=== PATIENT | female | born 2000 | race Caucasian/White ===

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

== ENCOUNTER → 2021-02-17 | Outpatient (CLI) | payer OTHER ==
[2021-02-17 17:27] LABS: BASO # 0.1 10^3/uL (0.0-0.2); BASO % 0.6 % (0.0-1.0); EOS # 0.1 10^3/uL (0.0-0.5); HEMATOCRIT 39.9 % (36.0-47.0); HEMOGLOBIN 13.4 g/dl (12.0-15.5); LYMPH % 27.8 % (24.0-44.0); MEAN CORPUSCULAR HEMOGLOBIN 30.5 pg (27.0-33.0); MEAN CORPUSCULAR HGB CONC 33.6 g/dl (32.0-36.5); MEAN CORPUSCULAR VOLUME 90.7 fl (80.0-96.0); MONO # 0.7 10^3/uL (0.0-0.8); MONO % 6.7 % (2.0-8.0); NEUTROPHILS # 6.8 10^3/uL (1.5-8.5); NEUTROPHILS % 63.6 % (36.0-66.0); PLATELET COUNT, AUTOMATED 303 10^3/uL (150-450); WHITE BLOOD COUNT 10.6 10^3/uL (4.0-10.0)
[2021-02-17 17:49] LABS: PERCENT SATURATION 24.7 % (13.2-45.0)
== END ==
LOC: M LAB 16:10
PROVIDERS: ATTEND Family Medicine
DX: R79.0 Abnormal level of blood mineral (principal); N94.6 Dysmenorrhea, unspecified

== ENCOUNTER → 2021-08-24 | Outpatient (CLI) | payer OTHER ==
[2021-08-24 16:21] LABS: BASO % 0.7 % (0.0-1.0); EOS % 0.2 % (0.0-3.0); HEMATOCRIT 43.2 % (36.0-47.0); HEMOGLOBIN 14.5 g/dl (12.0-15.5); LYMPH # 2.2 10^3/uL (1.5-5.0); LYMPH % 37.1 % (24.0-44.0); MEAN CORPUSCULAR HEMOGLOBIN 29.8 pg (27.0-33.0); MEAN CORPUSCULAR HGB CONC 33.6 g/dl (32.0-36.5); MEAN CORPUSCULAR VOLUME 88.7 fl (80.0-96.0); MONO # 0.4 10^3/uL (0.0-0.8); MONO % 6.8 % (2.0-8.0); NEUTROPHILS # 3.3 10^3/uL (1.5-8.5); PLATELET COUNT, AUTOMATED 289 10^3/uL (150-450); RED BLOOD COUNT 4.87 10^6/uL (4.00-5.40)
[2021-08-24 16:59] LABS: MAGNESIUM LEVEL 2.1 MG/DL (1.4-2.0); THYROID STIMULATING HORMONE 4.33 uIU/ML (0.463-3.98)
== END ==
LOC: M LAB 14:32
PROVIDERS: ATTEND Family Medicine
DX: E06.3 Autoimmune thyroiditis (principal); N94.6 Dysmenorrhea, unspecified; R79.0 Abnormal level of blood mineral

== ENCOUNTER 2021-09-06 15:48 | Emergency (ER) | payer OTHER ==
[~2021-09-06] VITALS: Ht 154.9 cm; Wt 41.2 kg
[2021-09-06] MEDS ORDERED: VYVA30CA4 (15:56)
--- OUTSIDE RECORDS SUMMARY | 2021-09-06 16:39 | CCD | Continuity of Care Document ---
Author Author Melody ARELLANO P.A.-C. Organization Unknown Address [address] [place] [id number] Phone [phone] Care Team Providers Care Thermodynamics Engineer Name Role Phone Ludwig Collado M.D. AUTM [phone] Problems Active Problems Provider Date Dizziness Jeni Jones M.D. Onset: 03/13/2016 Social History Type Date Description Comments Sex Unknown Tobacco Use Start: Unknown Patient has never smoked Allergies and adverse reactions Description No Known Drug Allergies Medications Active Medications SIG Qnty Indications Ordering Provide r Date Magnesium Oxide 400(241.3Mg) mg Ta blets 1 by mouth twice a day 60tabs Jeni Jones M.D. 03/13/20 16 Riboflavin 100mg Capsules 1 by mouth twice a day 60caps Jeni Jones M.D. 03/13/2016 Immunizations Description No Information Available Vital Signs Date Vital Result Comment 05/24/2021 6:22am BP Systolic 120 mmHg BP Diastolic 70 mmHg Heart Rate 68 /min Respiratory Rate 16 /min 02/17/2021 8:09am BP Systolic 100 mmHg BP Diastolic 70 mmHg Heart Rate 76 /min Respiratory Rate 16 /min Results Description No Information Available Procedures Date Code Description Status 08/26/2021 07552 Office/Outpatient Established Mo d MDM 30-39 Min Completed 05/24/2021 96423 Office/Outpatient Established Mo d MDM 30-39 Min Completed Medical Devices Description No Information Available Encounters Type Date Location Provider Dx Diagnosis Office Visit 08/26/2021 11:30a Main office - [place] Mami ann P.A.-C. 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 08/26/2021 G43.009 Migraine without aura, not intra ctable, without status migra Mami Arellano P.A.-C. 08/26/2021 R42 Dizziness and giddiness Mami Arellano, P.A.-C. 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 08/26/2021 F32.89 Other specified depressive episo artur Mami Arellano, P.A.-C. 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 05/24/2021 G43.009 Migraine without aura, not intra ctable, without status migra Mami Arellano, P.A.-C. 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 05/24/2021 G47.12 Idiopathic hypersomnia without l sekou sleep time Mami Arellano P.A.-C. 05/24/2021 R42 Dizziness and giddiness Mami Arellano P.A.-C. 05/24/2021 F32.89 Other specified depressive episo artur Mami Arellano P.A.-C. 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 Plan of Treatment Future Appointment(s):* 11/28/2021 2:45 pm - Mami Arellano P.A.-C. 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 DIZZINESS AND POTS Created [id number] [place] [address] [phone] Hugh Peraza, PH.D. LEARNING DIFFICULTIES WITH ADHD/OCD AND ANXI ETY Created Neuropsychologist [id number] [facility], [address] [place] [address] [phone]
--- OUTSIDE RECORDS SUMMARY | 2021-09-06 16:39 | CCD | Continuity of Care Document ---
Author Author [facility] Organization [facility] Address Unknown Phone Unavailable Care Team Providers Care Promotion Specialist Name Role Phone Jamie FRONT END WEB DEVELOPER, Sue Casey Unavailable Unavailable Allergies, Adverse Reactions, Alerts Substance Reaction Status Criticality POTASSIUM CLAVULANATE Active No Informa tion AMOXICILLIN TRIHYDRATE Active No Inform ation Medications Medication Instructions Dosage Effective Dates (start - stop) Sta tus Comments Aubra 0.1 mg-20 mcg tablet 1 po daily - Active Apri 0.15 mg-0.03 mg tablet take 1 tablet by oral route every d ay 1.00 tablet - Active Probiotic 10 billion cell capsule - Ac tive Vitamin C 100 mg tablet - Active multivitamin tablet - Active IRON (unknown strength) Not Available - Active 65 mcg MAGNESIUM (unknown strength) Not Available - Acti ve 200 mg Hair,Skin,Nails with Biotin 7.5 mg-7.5 unit-1,250 mcg chewable tabl et - Active Zyrtec 10 mg tablet take 1 tablet by oral route every day 10 MG - Active ibuprofen 200 mg tablet take 1 tablet by oral route every 6 hours as needed with food 200 MG - Active Problems Condition Effective Dates (start - stop) Clinical Status C omments Encounter for test, result negative Encounter for oth general cnsl and advice on contraception Encounter for surveillance of contraceptive pills 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 Other CVR Blood Pressure CVR Med.Svc. Height/Weight CVR Usability Strategist.Svc. Contraceptive CVR Usability Strategist.Svc. Other CVR Usability Strategist.Svc. STI / H Results Test Name Date and Time Measure Units Reference Range Abnormal Flag St atus Comments Panel Description: High Sensitivity Urine Test Fi nal High Sensitivity Urine Test 14:57:37 N egativeLot: [id number]: 12/26/2022 Final Advance Directives Directive Yes / No Effective Date File Name No Information Encounters Encounter Description Practice Location Reason(s) For Visit Diagnose s Date Provider Providers Copied on Encounter PREV VISIT, EST, AGE 18-39 [facility] [address] [place] [address], [id number], tel:[phone] [facility] [place] Prevent ative Visit (chief complaint) Encounter for test, result neg ativeEncounter for oth general cnsl and advice on contraceptionEncounter for surveillance of contraceptive pillsEncntr for food processing chemist exam (general) (routine) w/o abn findingsHuman immunodeficiency virus [HIV] counselingOther sex counseling Jamie Casey. [address] [place] [address], [id number], [place]. tel:[phone] Referring Provider: Sue yAala, [address] [place] [address], [id number]. tel:[phone] [facility], [address] [place] [address], [id number], [place] tel:[phone] [facility] [place] Encounter for pregn eliel test, result negativeHuman immunodeficiency virus [HIV] counselingEncounter for oth general cnsl and advice on contraceptionEncounter for initial prescription of contraceptive pillsOther sex counseling Cordelia garcia. [address] [place] [address], [id number], . tel:[phone] Referring Provider: Mami Storey, [address], [place], [id number]. tel:[phone] Family History Family Member Diagnosis Age At Onset Paternal grandfather Cancer, prostate Maternal grandmother Cancer, breast (Cause Of ) Family history of 'pulmonary issues' on fathers side Mother Cancer, ovarian Family history of 'heart problems' on fa thers side 1st degree relative No hx of cancer of breast, colon, endome trium or ovary 1st degree relative No hx of venous thromboembolism 1st degree relative No hx of coronary heart disease (female <65, male <55) Immunizations Vaccine Date Status Comments No Information Payers Payer name Insurance type Covered democrat ID Authorization(s ) [facility] Spouse And Dependents [id number] FPBP PRESUMPTIVE ELIGIBILITY Social History Type Description Quantity Date Captured Comments Alcohol Use Details Unknown Caffeine Use Details Unknown Tobacco Use Status Current non-smoker Smoking Status Never smoker Non-Smoking Tobacco Use Details : No Details Available : No Details Available Sex Female Vital Signs Date / Time: Height Weight BMI Pulse Rate Blood Pressure Temperatu re Respiratory Rate Body Surface Area Head Circumference BMI percentile Pulse Ox In haled Ox 2:43 PM 61.00 in 96.00 lbs 18.14 kg/meter(2) 120/78 mm [Hg] 7 Chief Complaint And Reason For Visit Most recent encounter only, dated '07/18/2021 14:30'. Preventative Visit (chief complaint) Reason For Referral Reason For Referral No Information Plan Of Treatment Date Type Action Status Appointment Melody Dent *SOHAIL* - Check BOOKED History Of Present Illness Encounter Date Complaint History Of Present I llness No Information Functional Status Date Functional Assessment No Information Medications Administered Medication Instructions Dosage Effective Dates (start - stop) Sta tus Comments No Information Instructions Date Instruction Additional Informati on No Information Assessments Type Assessment Date assessment Encounter for test, result neg ative assessment Encounter for oth general cnsl and advic e on contraception assessment Encounter for surveillance of contracept luna pills assessment 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 Anterior palpation - Normal. No abdominal tenderness. No hepatic enlargement. No splenic enlargement. No palpable mass. Cardiovascular Normal Heart rate - Regular rate. Rhythm - Regular. Heart sounds - Normal S1, Normal S2. Murmurs - None. Extremities - No edema. Extremity Normal No Cyanosis. No Elmer a. Neck Exam Normal Inspection - Normal. Palpation - Normal. Thyroid gland - Normal. Cervical lymph nodes - Normal. Neurological Normal Level of consciousne ss - Normal. Orientation - Normal. Respiratory Normal Inspection - Normal. Auscultation - Normal. Effort - Normal. Skin Normal Inspection - Normal. Palpation/texture - Normal. Breast Comments Due to age and guide lines Breast * Breast exam deferred . BSA was discussed.
--- OUTSIDE RECORDS SUMMARY | 2021-09-06 16:39 | CCD ---
Author Author [facility] Organization [facility] Address Unknown Phone Unavailable Care Team Providers Care Account Information Clerk Name Role Phone Ludwig Collado Unavailable PROBLEMS Type Condition ICD9-CM Code [id number] Code Onset Dates Condition S tatus W/U Status Risk SNOMED Code Notes Problem Excessive or frequent menstruation N92.0 Activ e confirmed 651223088 Problem Dysmenorrhea N94.6 Active confirmed 0694096 00 Problem Hypersomnia G47.10 Active confirmed 11354446 Problem Anxiety F41.9 Active confirmed 07675935 Problem Sinusitis, unspecified chronicity, unspecified location J32.9 Active confirmed 85947293 Problem Upper respiratory tract infection, unspecified type J06.9 Active confirmed 97530414 Problem Seasonal allergies J30.2 Active confirmed 4 91036910 Problem Attention deficit hyperactivity disorder (ADHD), unspecified ADHD type F90.9 Active confirmed 047830968 ALLERGIES Allergen (clinical drug ingredient) Drug/Non Drug Allergy do cumented on EMR Reaction Allergy Type Onset Date Status amoxicillin Amoxicillin(NDC Code:[address]-45) Nausea/Diarrhea Drug Allergy Active amoxicillin / clavulanate Augmentin(NDC Code:[address]-03) Naus ea/Vomiting Drug Allergy Active ENCOUNTERS from 2001 to 2021-06-14 Encounter Location Date Provider Diagnosis [facility] [address] [facility] [phone] [place] [address] May, Ludwig Collado Attention deficit hyperactiv ity disorder (ADHD), unspecified ADHD type F90.9 IMMUNIZATIONS Vaccine Route Administration Date Status COVID-19 dose #2 given elsewhere Unspecified IM Intramuscular Ma y 2020 Administered COVID-19 dose #1 given elsewhere Unspecified IM Intramuscular Ap ril 2020 Administered Influenza 6mo & up Fluzone Unknown Sep 27, 2017 Other s Influenza 6mo & up Fluzone Unknown March 15, 2017 Other s Influenza 6mo & up Fluzone Unknown Oct 12, 2015 Refus ed Influenza 6mo & up Fluzone Unknown Nov 26, 2014 Refus ed SOCIAL HISTORY Tobacco Use: Social History Observation Description Date Details (start date - stop date) Never Smoker Sex Assigned At : Social History Observation Description Sex Assigned At Unknown Education: Question Answer Notes Level of Education: starting college Language: Question Answer Notes Languages spoken: Croatian Catholic: Question Answer Notes Catholic 24 Hinduism Sexual Hx: Question Answer Notes Had sex in the last 12 months (vaginal, oral, or anal)? No LMP: 04/12/2020 Have you ever had an STD? No Alcohol Screening: Question Answer Notes Did you have a drink containing alcohol in the past year? No Points 0 Interpretation Negative Tobacco Use: Question Answer Notes Are you a: never smoker REASON FOR REFERRAL No Information VITAL SIGNS No information MEDICATIONS Medication SIG (Take, Route, Frequency, Duration) Notes Start Da te End Date Status Magnesium 200 MG 1 capsule Orally Once a day Active Hair Skin Nails - as directed Orally Active Zithromax Z-Lewis 250 MG 2 tablets on the first day, then 1 tablet daily for 4 days Orally Once a day for 5 day(s) Nov, Not-Taking Vitamin C 500 MG as directed Orally Active Iron 325 (65 Fe) MG 1 tablet Orally Once a day for 90 days Active Cetirizine HCl 10 MG 1 tablet Orally Once a day Active Vyvanse 30 MG 1 capsule in the morning Orally Once a day for 3 0 days May, Active Midol Active Ibuprofen 200 MG 1 tablet with food or milk as needed Ora lly Three times a day 300mg Active Probiotic - as directed Orally Activ e Multi Vitamin - 1 tablet Orally Once a day for 30 day(s) Active PROCEDURES No Information RESULTS No Results REASON FOR VISIT New Refill Request MEDICAL (GENERAL) HISTORY Type Description Date Medical History ADHD Medical History OCD Medical History anxiety Medical History bakers cyst knee Medical History hypersomnia Medical History HX concussion Medical History POTS Medical History Hx migraines, cluster headac hes, Mami Trickey, [facility] [facility] Medical History Seasonal allergies Medical History Myopia, astigmatism Medical History Florentin's thyroidits Medical History Covid vaccine, moderna Surgical History No know Surgical history Goals Section No Information Health Concerns No Information MEDICAL EQUIPMENT No Information MENTAL STATUS No Information FUNCTIONAL STATUS No Information ASSESSMENTS Encounter Date Diagnosis Assessment Notes Treatment Notes Treatm ent Clinical Notes May, Attention deficit hyperactiv ity disorder (ADHD), unspecified ADHD type (ICD-10 - F90.9) PLAN OF TREATMENT Medication Medication Name Sig Start Date Stop Date Iron 325 (65 Fe) MG 1 tablet Orally Once a day for 90 days Midol Vyvanse 30 MG 1 capsule in the morning Orally Once a d ay for 30 days May, Next Appt Details Provider Name:Ludwig Gonzalez Collado, 2021-08-17 03:45:00 PM, [address] [facility], , [place], [phone], Insurance Providers Payer Name Payer Address Payer Phone Insured Name Patient Relati onship to Insured Coverage Start Date Coverage End Date [facility] [address] [address] [facility] [id number] [place] self
[2021-09-06 20:51] LABS: RSV AMPLIFICATION NEGATIVE (NEGATIVE)
--- OUTSIDE RECORDS SUMMARY | 2021-09-06 21:54 | CCD ---
Author Author [facility] Organization [facility] Address Unknown Phone Unavailable Care Team Providers Care Under Ground Miner Name Role Phone Collado, Ludwig Unavailable PROBLEMS Type Condition ICD9-CM Code ZDQ89-DE Code Onset Dates Condition S tatus W/U Status Risk SNOMED Code Notes Problem Dysmenorrhea N94.6 Active confirmed 3678180 00 Problem Sinusitis, unspecified chronicity, unspecified location J32.9 Active confirmed 18175580 Problem Upper respiratory tract infection, unspecified type J06.9 Active confirmed 71910418 Problem POTS (postural orthostatic tachycardia syndrome) I 49.8 Active confirmed 955392113 Problem Excessive or frequent menstruation N92.0 Activ e confirmed 458200574 Problem 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 Active confirmed 93998187 Problem Attention deficit hyperactivity disorder (ADHD), unspecified ADHD type F90.9 Active confirmed 015126180 Problem Seasonal allergies J30.2 Active confirmed 4 56869128 Problem Anxiety F41.9 Active confirmed 08676509 Problem Hypersomnia G47.10 Active confirmed 84275774 ALLERGIES Allergen (clinical drug ingredient) Drug/Non Drug Allergy do cumented on EMR Reaction Allergy Type Onset Date Status amoxicillin Amoxicillin(ND Code:[address]-36) Nausea/Diarrhea Drug Allergy Active amoxicillin / clavulanate Augmentin(ND Code:[address]-78) Naus ea/Vomiting Drug Allergy Active ENCOUNTERS from 2001 to 2021-08-25 Encounter Location Date Provider Diagnosis [facility] [address] [facility] [phone] [place] [address] Jul, Ludwig Collado Dysmenorrhea N94.6 ; Attenti on deficit hyperactivity disorder (ADHD), unspecified ADHD type F90.9 ; Hypersomnia G47.10 ; Iron deficiency E61.1 ; 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 ; COVID-19 vaccine series c ompleted Z92.29 ; Low magnesium level R79.0 ; Influenza vaccine refused Z28.21 and POTS (postural orthostatic tachycardia syndrome) I49.8 IMMUNIZATIONS Vaccine Route Administration Date Status COVID-19 [...] college Language: Question Answer Notes Languages spoken: [place] Rastafarian: Question Answer Notes Rastafarian 24 Yarsani Sexual Hx: Question Answer Notes Had sex [...] REASON FOR REFERRAL No Information VITAL SIGNS Weight 92.2 lbs Jul, Weight-kg 41.82 kg Jul, Height 61 in Jul, BMI 17.42 kg/m2 Jul, Heart Rate 104 /min Jul, Respiratory Rate 16 /min Jul, Temperature 98.8 degrees Fahrenheit Jul, Oximetry 96 Jul, Blood pressure systolic 120 mm Hg Jul, Blood pressure diastolic 84 mm Hg Jul, MEDICATIONS Medication SIG (Take, Route, Frequency, Duration) Notes Start Da te End Date Status Iron 325 (65 Fe) MG 1 tablet Orally Once a day for 90 days Not-Taking Multi Vitamin - 1 tablet Orally Once a day for 30 day(s) Active Ibuprofen 200 MG 1 tablet with food or milk as needed Ora lly Three times a day PRN Active Hair Skin Nails - as directed Orally Active Cetirizine HCl 10 MG 1 tablet Orally Once a day Active Probiotic - as directed Orally Activ e Vitamin C 500 MG as directed Orally Active Zithromax Z-Lewis 250 MG 2 tablets on the first day, then 1 tablet daily for 4 days Orally Once a day for 5 day(s) Nov, Not-Taking Vyvanse 30 MG 1 capsule in the morning Orally Once a day for 3 0 days Jul, Active Magnesium 200 MG 1 capsule Orally Once a day Active Midol Active PROCEDURES No Information RESULTS Component Value Reference Range CBC with Differential Reviewed date:08/24/2021 17:37:40 Interpretation:Normal Performing Lab:[facility] [address] [place] [address] , ,[place] [address] WHITE BLOOD COUNT 6.0 4.0-10.0 RED BLOOD COUNT 4.87 4.00-5.40 HEMOGLOBIN 14.5 12.0-15.5 HEMATOCRIT 43.2 36.0-47.0 MEAN CORPUSCULAR VOLUME 88.7 80.0-96.0 MEAN CORPUSCULAR HEMOGLOBIN 29.8 27.0-33.0 MEAN CORPUSCULAR HGB CONC 33.6 32.0-36.5 RED CELL DISTRIBUTION WIDTH 11.7 11.5-14.5 PLATELET COUNT, AUTOMATED 289 150-450 NEUTROPHILS % 55.0 36.0-66.0 LYMPH % 37.1 24.0-44.0 MONO % 6.8 2.0-8.0 EOS % 0.2 0.0-3.0 BASO % 0.7 0.0-1.0 NEUTROPHILS # 3.3 1.5-8.5 LYMPH # 2.2 1.5-5.0 MONO # 0.4 0.0-0.8 EOS # 0.0 0.0-0.5 BASO # 0.0 0.0-0.2 IRON (FE) Reviewed date:08/24/2021 17:37:40 Interpretation:Normal Performing Lab:[facility] [address] [facility] [address] , ,[place] [address] IRON (FE) [phone] MAGNESIUM LEVEL Reviewed date:08/24/2021 17:37:40 Interpretation:Abnormal Performing Lab:[facility], [facility] [address] [facility] [address] , ,[place] [address] MAGNESIUM LEVEL 2.1 1.4-2.0 TSH Reviewed date:08/24/2021 17:37:40 Interpretation:Normal Performing Lab:[facility], [facility] [address] [facility] [address] , ,[place] [address] THYROID STIMULATING HORMONE 4.330 0.463-3.98 REASON FOR VISIT 6 mth MEDICAL (GENERAL) HISTORY Type Description Date Medical [...] Notes Treatment Notes Treatm ent Clinical Notes Jul, Dysmenorrhea (ICD-10 - N94.6) [facility]. On control at this time. Does not know name of medication. Had side effects from elevated dose, on low dose. Continue for now. Stopped using iron supplement. Order repeat to sceen. If low will recommend to restart. Jul, Attention deficit hyperactiv ity disorder (ADHD), unspecified ADHD type (ICD-10 - F90.9) Continue with vyvanse. Continues to get benefit. Was on adderall in the past. Noted tics worsened while on medication. Jul, Hypersomnia (ICD-10 - G47.10) Has been dealing with. Tolerating at this time. Issues with taking amphetamine in the past. Jul, Iron deficiency (ICD-10 - E61.1) Order repeat Iron levels. If low restart supplement. Jul, Florentin's thyroiditis (ICD-10 - E06.3) Order TSH to monitor thyroid function. Jul, COVID-19 vaccine series completed (ICD-10 - Z92. 29) Had moderna vaccine. Discussed if make recommendation on booster to get as needed. Questions call office. Jul, Low magnesium level (ICD-10 - R79.0) Repeat magnesium level to monitor. Jul, Influenza vaccine refused (ICD-10 - Z28.21) Recommended. Declined. Notes having side effects. Jul, POTS (postural orthostatic tachycardia s yndrome) (ICD-10 - I49.8) Follow up with neurology. Referreed to [facility] from neurology. Jul, Other Started series. Moderna. Has second scheduled. Looking into counseling with [facility]. Noted medical social worker here at clinic. Call if not improving. PLAN OF TREATMENT Treatment Notes Assessment Notes Clinical Notes Dysmenorrhea [facility]. On control at this time. Does not know name of medication. Had side effects from elevated dose, on low dose. Continue for now.Stopped using iron supplement. Order repeat to sceen. If low will recommend to restart. Attention deficit hyperactivity disorder (ADHD), unspecified ADHD type Continue with vyvanse. Continues to get benefit.Was on adderall in the past. Noted tics worsened while on medication. Hypersomnia Has been dealing wit h. Tolerating at this time.Issues with taking amphetamine in the past. Iron deficiency Order repeat Iron le vels. If low restart supplement. Florentin's thyroiditis Order TSH to mon itor thyroid function. COVID-19 vaccine series completed Had mo derna vaccine. Discussed if make recommendation on booster to get as needed. Questions call office. Low magnesium level Repeat magnesium lev el to monitor. Influenza vaccine refused Recommended. D eclined. Notes having side effects. POTS (postural orthostatic tachycardia syndrome) Follow up with neurology. Referreed to [facility] from [facility]y. Next Appt Details 6 mth Reason: Provider Name:Ludwig Collado, 2022-02-15 03:45:00 PM, [address] [facility], , [place], [address], Insurance Providers Payer Name Payer Address Payer Phone Insured Name Patient Relati onship to Insured Coverage Start Date Coverage End Date [facility] [address] [address] [facility] [address] Lucas YOO self
--- OUTSIDE RECORDS SUMMARY | 2021-09-06 21:54 | CCD | Continuity of Care Document ---
Author Author Melody ARELLANO P.A[facility] Organization Unknown Address [address] [place] [address] Phone [phone] Care Team Providers Care Crate Liner Name Role Phone Ludwig Collado M.D. AUTM [phone] Problems Active Problems Provider Date Dizziness Jeni [...] Available Procedures Date Code Description Status 08/26/2021 56792 Office/Outpatient Established Mo d MDM 30-39 Min Completed 05/24/2021 30508 Office/Outpatient Established Mo d MDM 30-39 Min Completed Medical Devices Description No Information Available Encounters Type Date Location Provider Dx Diagnosis Office Visit 08/26/2021 11:30a Main office - [place] Mami ann P.A.-C. 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 G43.009 Migraine w/o aura, [...] Mami Arellano P.A.-C. at Main office - [place] 08/26/2021 - Mami Arellano P.A.-C.* G47.12 Idiopathic [...] Patty Gambino M.D. DIZZINESS AND POTS Created [facility] [id number] [place] [address] [phone] Hugh Peraza, PH.D. LEARNING DIFFICULTIES WITH ADHD/OCD AND ANXI ETY Created Neuropsychologist [address] [facility], [address] [place] [address] [phone]
--- OUTSIDE RECORDS SUMMARY | 2021-09-06 21:54 | CCD ---
Author Author [facility] Organization [facility] Address Unknown Phone Unavailable Care Team Providers Care Television Production Clerk Name Role Phone Ludwig Collado Unavailable PROBLEMS Type Condition ICD9-CM Code GUS60-ES Code Onset Dates Condition S tatus W/U Status Risk SNOMED Code Notes Problem Excessive or frequent menstruation N92.0 Activ e confirmed 374513505 Problem Dysmenorrhea N94.6 Active confirmed 2913397 00 Problem Hypersomnia G47.10 Active confirmed 45878296 Problem Anxiety F41.9 Active confirmed 50205544 Problem Sinusitis, unspecified chronicity, unspecified location J32.9 Active confirmed 93598652 Problem Upper respiratory tract infection, unspecified type J06.9 Active confirmed 28131020 Problem Seasonal allergies J30.2 Active confirmed 4 41320297 Problem Attention deficit hyperactivity disorder (ADHD), unspecified ADHD type F90.9 Active confirmed 979826414 ALLERGIES Allergen (clinical drug ingredient) Drug/Non Drug Allergy do cumented on EMR Reaction Allergy Type Onset Date Status amoxicillin Amoxicillin(NDC Code:[address]-67) Nausea/Diarrhea Drug Allergy Active amoxicillin / clavulanate Augmentin(NDC Code:[address]-67) Naus ea/Vomiting Drug Allergy Active ENCOUNTERS from 2001 to 2021-07-14 Encounter Location Date Provider Diagnosis [facility] [address] [facility] [phone] [place] [address] Jun, Ludwig Collado Attention deficit hyperactiv ity disorder [...] college Language: Question Answer Notes Languages spoken: Greenlandic Yazdanism: Question Answer Notes Yazdanism 24 Yarsanism Sexual Hx: Question Answer Notes Had sex [...] 1 capsule Orally Once a day Active Vitamin C 500 MG as directed Orally Active Zithromax Z-Lewis 250 MG 2 tablets on the first day, then 1 tablet daily for 4 days Orally Once a day for 5 day(s) Nov, Not-Taking Vyvanse 30 MG 1 capsule in the morning Orally Once a day for 3 0 days Jun, Active Iron 325 (65 Fe) MG 1 tablet Orally Once a day for 90 days Active Cetirizine HCl 10 MG 1 tablet Orally Once a day Active Hair Skin Nails - as directed Orally Active Midol Active Ibuprofen 200 MG 1 tablet with food or milk as needed Ora lly Three times a day 300mg Active Probiotic - as directed Orally Activ e Multi Vitamin - 1 tablet Orally Once a day for 30 day(s) Active PROCEDURES No Information RESULTS No Results REASON FOR VISIT Vyvanse refill MEDICAL (GENERAL) HISTORY Type Description Date Medical [...] Notes Treatment Notes Treatm ent Clinical Notes Jun, Attention deficit hyperactiv ity disorder (ADHD), unspecified ADHD type (ICD-10 - F90.9) PLAN OF TREATMENT Medication Medication Name Sig Start Date Stop Date Iron 325 (65 Fe) MG 1 tablet Orally Once a day for 90 days Midol Vyvanse 30 MG 1 capsule in the morning Orally Once a d ay for 30 days Jun, Next Appt Details Provider Name:TjLisa Collado, 2021-08-17 03:45:00 PM, [address] [facility], , [place], [address], Insurance Providers Payer Name Payer Address Payer Phone Insured Name Patient Relati onship to Insured Coverage Start Date Coverage End Date [facility] [address] [address] [facility] [address] Lucas YOO self
--- OUTSIDE RECORDS SUMMARY | 2021-09-06 21:54 | CCD | Continuity of Care Document ---
Author Author Melody ARELLANO P.A.-C. Organization Unknown Address [address] [place] [address] Phone [phone] Care Team Providers Care Scuba Instructor Name Role Phone Ludwig Collado M.D. AUTM [phone] Problems Active Problems Provider Date Dizziness Jeni [...] Available Vital Signs Date Vital Result Comment 08/26/2021 6:19am BP Systolic 110 mmHg BP Diastolic 80 mmHg Heart Rate 76 /min Respiratory Rate 16 /min 05/24/2021 6:22am BP Systolic 120 mmHg BP Diastolic 70 mmHg Heart Rate 68 /min Respiratory Rate 16 /min Results Description No Information Available Procedures Date Code Description Status 08/26/2021 55607 Office/Outpatient Established Mo d MDM 30-39 Min Completed 05/24/2021 07379 Office/Outpatient Established Mo d MDM 30-39 Min Completed Medical Devices Description No Information Available Encounters Type Date Location Provider Dx Diagnosis Office Visit 08/26/2021 11:30a Main office - [place] Mami ann P.A.-C. 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 G43.009 Migraine w/o aura, [...] Arellano P.A.-C. 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 Plan of Treatment Future Appointment(s):* 11/28/2021 2:45 pm - Mami Arellano P.A.-C. at Main office - [place] 08/26/2021 - Mami Arellano P.A.-C.* G47.12 Idiopathic hypersomnia without long sleep time* Comments:* She continues Vyvanse. Follow up with PCP. * G43.009 Migraine without aura, not intractable, without status migra* Comments:* Controlled. * R42 Dizziness and giddiness* Comments:* She has an upcoming appt with cardiology. 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 * F32.89 Other specified depressive episodes* Comments:* She is awaiting an appt at [facility]. 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 * Follow up:* 3 months Functional Status Description No Information Available Mental Status Description No Information Available Referrals Refer to Reason for Referral Status Appt Date Patty Rodrigues M.D. DIZZINESS AND POTS Created [facility] [address] [place] [address] [phone] Hugh Peraza, PH.D. LEARNING DIFFICULTIES WITH ADHD/OCD AND ANXI ETY Created Neuropsychologist [address] [place] [address], [address] [place] [address] [phone]
--- OUTSIDE RECORDS SUMMARY | 2021-09-06 21:55 | CCD ---
Author Author [facility] Organization [facility] Address Unknown Phone Unavailable Care Team Providers Care Launch Steward Name Role Phone Yariel RIZO MD Unavailable Unavailable Yariel RIZO MD Unavailable Unavailable Yariel RIZO MD Unavailable Unavailable Yariel RIZO MD Unavailable Unavailable Yariel RIZO MD Unavailable Unavailable Yariel RIZO MD Unavailable Unavailable Yariel RIZO MD Unavailable Unavailable Yariel RIZO MD Unavailable Unavailable Yariel RIZO MD Unavailable Unavailable Yariel RIZO MD Unavailable Unavailable Yariel RIZO MD Unavailable Unavailable Yariel RIZO MD Unavailable Unavailable Yariel RIZO MD Unavailable Unavailable Yariel RIZO MD Unavailable Unavailable Yariel RIZO MD Unavailable Unavailable Yariel RIZO MD Unavailable Unavailable Yariel RIZO MD Unavailable Unavailable Yariel RIZO MD Unavailable Unavailable Yariel RIZO MD Unavailable Unavailable Yariel RIZO MD Unavailable Unavailable Yariel RIZO MD Unavailable Unavailable Yariel RIZO MD Unavailable Unavailable Yariel RIZO MD Unavailable Unavailable Yariel RIZO MD Unavailable Unavailable [facility] MONIT[facility], Sue Unavailable Unavailable [facility] MONITOR, Sue Unavailable Unavailable [facility] MONITOR, Sue Unavailable Unavailable [facility] MONITOR, Sue Unavailable Unavailable [facility] MONITOR, Sue Unavailable Unavailable Trickey J Mami PA Unavailable Unavailable Trickey J Mami PA Unavailable Unavailable Trickey, J Mami PA Unavailable Unavailable Trickey, J Mami PA Unavailable Unavailable Trickey, J Mami PA Unavailable Unavailable Trickey, J Mami PA Unavailable Unavailable Trickey, J Mami PA Unavailable Unavailable Trickey, J Mami PA Unavailable Unavailable Trickey, J Mami PA Unavailable Unavailable Trickey, J Mami PA Unavailable Unavailable Trickey, J Mami PA Unavailable Unavailable Trickey, J Mami PA Unavailable Unavailable Trickey, J Mami PA Unavailable Unavailable Trickey, J Mami PA Unavailable Unavailable Trickey, J Mami PA Unavailable Unavailable Trickey, J Mami PA Unavailable Unavailable Trickey, J Mami PA Unavailable Unavailable Trickey, J Mami PA Unavailable Unavailable Trickey, J Mmai PA Unavailable Unavailable Trickey, J Mami PA Unavailable Unavailable Trickey, J Mami PA Unavailable Unavailable Trickey, J Mami PA Unavailable Unavailable Trickey, J Mami PA Unavailable Unavailable Trickey, J Mami PA Unavailable Unavailable Trickey, J Mami PA Unavailable Unavailable Trickey, J Mami PA Unavailable Unavailable Trickey, J Mami PA Unavailable Unavailable Trickey, J Mami PA Unavailable Unavailable Trickey, J Mami PA Unavailable Unavailable Trickey, J Mami PA Unavailable Unavailable Trickey, J Mami PA Unavailable Unavailable Trickey, J Mami PA Unavailable Unavailable Trickey, J Mami PA Unavailable Unavailable Trickey, J Mami PA Unavailable Unavailable Trickey, J Mami PA Unavailable Unavailable Trickey, J Mami PA Unavailable Unavailable Trickey, J Mami PA Unavailable Unavailable Trickey, J Mami PA Unavailable Unavailable Trickey, J Mami PA Unavailable Unavailable Trickey, J Mami PA Unavailable Unavailable Trickey, J Mami PA Unavailable Unavailable Trickey, J Mami PA Unavailable Unavailable Trickey, J Mami PA Unavailable Unavailable Trickey, J Mami PA Unavailable Unavailable Trickey, J Mami PA Unavailable Unavailable Trickey, J Mami PA Unavailable Unavailable Trickey, J Mami PA Unavailable Unavailable Trickey, J Mami PA Unavailable Unavailable Trickey, J Mami PA Unavailable Unavailable Dwello PA PA, Mami Unavailable Unavailable Dwello PA PA, Mami Unavailable Unavailable Dwello PA PA, Mami Unavailable Unavailable Dwello PA PA, Mami Unavailable Unavailable Dwello PA PA, Mami Unavailable Unavailable Dwello PA PA, Mami Unavailable Unavailable Dwello PA PA, Mami Unavailable Unavailable Jessica, Angelica Unavailable Unavailable Jessica, Angelica Unavailable Unavailable Jessica, Angelica Unavailable Unavailable Re-disclosure Warning The records that you are about to access may contain information from federally-assisted alcohol or drug abuse programs. If such information is present, then the following federally mandated warning applies: This information has been disclosed to you from records protected by federal confidentiality rules (42 CFR part 2). The federal rules prohibit you from making any further disclosure of this information unless further disclosure is expressly permitted by the written consent of the person to whom it pertains or as otherwise permitted by 42 CFR part 2. A general authorization for the release of medical or other information is NOT sufficient for this purpose. The Federal rules restrict any use of the information to criminally investigate or prosecute any alcohol or drug abuse patient.The records that you are about to access may contain highly sensitive health information, the redisclosure of which is protected by Article 27-F of the [place] Public [employer] law. If you continue you may have access to information: Regarding HIV / AIDS; Provided by facilities licensed or operated by the [place] Office of Mental Health; or Provided by the [place] Office for People With Developmental Disabilities. If such information is present, then the following [place] mandated warning applies: This information has been disclosed to you from confidential records which are protected by state law. State law prohibits you from making any further disclosure of this information without the specific written consent of the person to whom it pertains, or as otherwise permitted by law. Any unauthorized further disclosure in violation of state law may result in a fine or mcc sentence or both. A general authorization for the release of medical or other information is NOT sufficient authorization for further disc losure. Allergies and Adverse Reactions Type Description Substance Reaction Status Data Source(s ) Propensity to adverse reactions amoxicillin trihydrate AMOXICILLIN TRIHYDRATE Active NextGen ([facility]) Propensity to adverse reactions clavulanate potassium POTASSIUM CLA VULANATE Active NextGen ([facility]) Propensity to adverse reactions NO KNOWN ALLERGIES NO KNOWN ALLERGIES [facility] Family History Family Member Name Family Member Gender Family Member Status Date o f Status Description Data Source(s) Unknown Male Diagnosis 05/16/2021 12:00:00 AM EDT NextGen ([facility]) Unknown Male Problem MEDENT ([facility]) Unknown Male Problem MEDENT ([facility]) Encounters Encounter Providers Location Date Indications Data Source(s ) Outpatient Attender: Mami NUNEZ Main office - [facility] 08/26/2021 11:30:00 AM EDT MEDENT ([facility]) [place] [address] [facility] [address] 08/17/2021 12:00:00 AM EDT eCW1 ([facility]) OutpatientPREV VISIT, EST, AGE 18-39 Attender: Sue Ayala [facility] MONITOR PANFILO [place] 07/18/2021 02:30:00 PM EDT - 07/18/2021 02:30:00 PM ED T Other sex counselingHuman immunodeficiency virus [HIV] counselingEncntr for measurement advisor exam (general) (routine) w/o abn findingsEncounter for surveillance of contraceptive pillsEncounter for oth general cnsl and advice on contraceptionEncounter for test, result negative NextGen ([facility]) Other sex counseling Human immunodeficiency virus [HIV] couns eling Encntr for measurement advisor exam (general) (routine) w/o abn findings Encounter for surveillance of contracept luna pills Encounter for oth general cnsl and advic e on contraception Encounter for test, result neg ative [place] [address] [facility] [facility] [address] 07/13/2021 12:00:00 AM EDT eCW1 ([facility]) Outpatient Attender: JERRI RIZO MD 07/08 12:31:47 PM EDT - 07/08/2021 01:51:43 PM EDT DocuTap ([facility] ) [place] [address] [facility] [address] 06/13/2021 12:00:00 AM EDT eCW1 ([facility]) Outpatient Attender: Mami NUNEZ Main office - [facility] 05/24/2021 02:30:00 PM EDT MEDENT ([facility] CASH Torres) OFFICE VISIT, NEWOutpatient Attender: [place] 05/16/2021 11:30:00 AM EDT - 05/16/2021 11:30:00 AM EDT Other sex counselingEncounter for initial prescription of contraceptive pillsEncounter for oth general cnsl and advice on contraceptionHuman immunodeficiency virus [HIV] counselingEncounter for test, result negative NextGen ([facility]) Other sex counseling Encounter for initial prescription of co ntraceptive pills Encounter for oth general cnsl and advic e on contraception Human immunodeficiency virus [HIV] couns eling Encounter for test, result neg ative Unknown [address] [facility] [place] [address] 05/12/2021 12:00:00 AM EDT eCW1 ([facility]) Unknown [address] [facility] [place] [address] 04/07/2021 12:00:00 AM EDT eCW1 ([facility]) Unknown [address] [facility] [place] [address] 03/10/2021 12:00:00 AM EDT eCW1 ([facility]) Outpatient Attender: Mami NUNEZ [facility] 02/17/2021 02:45:00 PM EDT MEDENT ([facility] CASH carr) Outpatient [address] [facility] [place] [address] 02/15/2021 12:00:00 AM EDT eCW1 ([facility]) Unknown [address] [facility] [place] [address] 02/06/2021 12:00:00 AM EDT eCW1 ([facility]) Outpatient Attender: Angelica Lopez 01/19/2021 10:00:00 AM EDT [facility] Unknown [address] [facility] [place] [address] 01/04/2021 12:00:00 AM EST eCW1 ([facility]) Unknown [address] [facility] [place] [address] 01/01/2021 12:00:00 AM EST eCW1 ([facility]) Unknown [address] [facility] [place] [address] 12/02/2020 12:00:00 AM EST eCW1 ([facility]) [place] [address] [facility] [facility] [address] 12/02/2020 12:00:00 AM EST eCW1 ([facility]) Office Visit Attender: Mami NUNEZ [facility] office - [facility] 11/02/2020 12:45:00 PM EST MEDENT ([facility] CASH [facility]) [place] [address] [facility] [address] 10/29/2020 12:00:00 AM EST eCW1 ([facility]) [place] [address] [facility] [address] 10/03/2020 12:00:00 AM EST eCW1 ([facility]) [place] [address] [facility] [address] 10/01/2020 12:00:00 AM EST eCW1 ([facility]) [place] [address] [facility] [address] 08/30/2020 12:00:00 AM EST eCW1 ([facility]) Outpatient [address] [facility] [facility] [address] 08/24/2020 12:00:00 AM EDT eCW1 ([facility]) Unknown [address] [facility] [address] 08/16/2020 12:00:00 AM EDT eCW1 ([facility]) Outpatient Attender: Mami NUNEZ [facility] 07/29/2020 02:45:00 PM EDT MEDENT ([facility] CASH [facility]) [place] [address] [facility] [address] 07/20/2020 12:00:00 AM EDT eCW1 ([facility]) Unknown [address] [facility] [address] 07/20/2020 12:00:00 AM EDT eCW1 ([facility]) [place] [address] [facility] [address] 07/20/2020 12:00:00 AM EDT [facility] ([facility]) [place] [address] [facility] [address] 07/20/2020 12:00:00 AM EDT [facility]CW1 ([facility]) [place] [address] [facility] [address] 07/20/2020 12:00:00 AM EDT eCW1 ([facility]) [place] [address] [facility] [address] 07/20/2020 12:00:00 AM EDT eCW1 ([facility]) [place] [address] [facility] [address] 07/20/2020 12:00:00 AM EDT eCW1 ([facility]) [place] [address] [facility] [address] 07/20/2020 12:00:00 AM EDT eCW1 ([facility]) [place] [address] [facility] [address] 07/20/2020 12:00:00 AM EDT eCW1 ([facility]) [place] [address] [facility] [address] 07/20/2020 12:00:00 AM EDT eCW1 ([facility]) Immunizations Vaccine Date Status Description Data Source(s) COVID-19 dose #2 given elsewhere Unspecified 03/02/2021 07:3 9:00 AM EDT completed eCW1 ([facility]) COVID-19 dose #2 given elsewhere Unspecified 03/02/2021 07:3 9:00 AM EDT completed eCW1 ([facility]) COVID-19 dose #2 given elsewhere Unspecified 03/02/2021 07:3 9:00 AM EDT completed eCW1 ([facility]) COVID-19 VACCINE Moderna 03/02/2021 12:00:00 AM EDT completed [employer] Vaccine Series Complete: YESThis Data wa s Submitted to [facility] Via [employer]. COVID-19 dose #1 given elsewhere Unspecified 02/02/2021 03:3 6:00 PM EDT completed eCW1 ([facility]) COVID-19 dose #1 given elsewhere Unspecified 02/02/2021 03:3 6:00 PM EDT completed eCW1 ([facility]) COVID-19 dose #1 given elsewhere Unspecified 02/02/2021 03:3 6:00 PM EDT completed eCW1 ([facility]) COVID-19 dose #1 given elsewhere Unspecified 02/02/2021 03:3 6:00 PM EDT completed eCW1 ([facility]) COVID-19 dose #1 given elsewhere Unspecified 02/02/2021 03:3 6:00 PM EDT completed eCW1 ([facility]) COVID-19 dose #1 given elsewhere Unspecified 02/02/2021 03:3 6:00 PM EDT completed eCW1 ([facility]) COVID-19 dose #1 given elsewhere Unspecified 02/02/2021 03:3 6:00 PM EDT completed eCW1 ([facility]) COVID-19 VACCINE Moderna 02/02/2021 12:00:00 AM EDT completed NYIS Vaccine Series Complete: NOThis Data was Submitted to [facility] Via [employer]. Medications Medication Brand Name Start Date Product Form Dose Route Admi nistrative Instructions Pharmacy Instructions Status Indications Reaction Description Data Source(s) lisdexamfetamine dimesylate 30 MG Oral Capsule [Vyvans e] Vyvanse 30 MG Vyvanse 30 MG 08/15/2021 12:00:00 AM EDT 1.0 {capsule_in_the_morning} active Vyvanse 30 MG eCW1 ([facility]) Aubra 0.1 mg-20 mcg tablet {21 (ethinyl estradiol 0.02 MG / levonorgestrel 0.1 MG Oral Tablet) / 7 (inert ingredients 1 MG Oral Tablet) } Pack 07/18/2021 12:00:00 AM EDT active Aubra 28 Day Pack NextGen ([facility]) lisdexamfetamine dimesylate 30 MG Oral Capsule [Vyvans e] Vyvanse 30 MG Vyvanse 30 MG 07/14/2021 12:00:00 AM EDT 1.0 {capsule_in_the_morning} active Vyvanse 30 MG eCW1 ([facility]) lisdexamfetamine dimesylate 30 MG Oral Capsule [Vyvans e] Vyvanse 30 MG Vyvanse 30 MG 06/13/2021 12:00:00 AM EDT 1.0 {capsule_in_the_morning} active Vyvanse 30 MG eCW1 ([facility]) Apri 0.15 mg-0.03 mg tablet {21 (desogestrel 0.15 MG / ethinyl estradiol 0.03 MG Oral Tablet) / 7 (inert ingredients 1 MG Oral Tablet) } Pack 05/16/2021 12:00:00 AM EDT 1.00 {tablet} ORAL active A timothy 28 Day Pack NextGen ([facility]) lisdexamfetamine dimesylate 30 MG Oral Capsule [Vyvans e] Vyvanse 30 MG Vyvanse 30 MG 05/13/2021 12:00:00 AM EDT 1.0 {capsule_in_the_morning} active Vyvanse 30 MG eCW1 ([facility]) lisdexamfetamine dimesylate 30 MG Oral Capsule [Vyvans e] Vyvanse 30 MG Vyvanse 30 MG 04/11/2021 12:00:00 AM EDT 1.0 {capsule_in_the_morning} active Vyvanse 30 MG eCW1 ([facility]) lisdexamfetamine dimesylate 30 MG Oral Capsule [Vyvans e] Vyvanse 30 MG Vyvanse 30 MG 03/10/2021 12:00:00 AM EDT 1.0 {capsule_in_the_morning} active Vyvanse 30 MG eCW1 ([facility]) lisdexamfetamine dimesylate 30 MG Oral Capsule [Vyvans e] Vyvanse 30 MG Vyvanse 30 MG 02/07/2021 12:00:00 AM EDT 1.0 {capsule_in_the_morning} active Vyvanse 30 MG eCW1 ([facility]) lisdexamfetamine dimesylate 30 MG Oral Capsule [Vyvans e] Vyvanse 30 MG Vyvanse 30 MG 02/07/2021 12:00:00 AM EDT 1.0 {capsule_in_the_morning} active Vyvanse 30 MG eCW1 ([facility]) lisdexamfetamine dimesylate 30 MG Oral Capsule [Vyvans e] Vyvanse 30 MG Vyvanse 30 MG 01/03/2021 12:00:00 AM EST 1.0 {capsule_in_the_morning} active Vyvanse 30 MG eCW1 ([facility]) lisdexamfetamine dimesylate 30 MG Oral Capsule [Vyvans e] Vyvanse 30 MG Vyvanse 30 MG 01/03/2021 12:00:00 AM EST 1.0 {capsule_in_the_morning} active Vyvanse 30 MG eCW1 ([facility]) lisdexamfetamine dimesylate 30 MG Oral Capsule [Vyvans e] Vyvanse 30 MG Vyvanse 30 MG 12/06/2020 12:00:00 AM EST 1.0 {capsule_in_the_morning} active Vyvanse 30 MG eCW1 ([facility]) lisdexamfetamine dimesylate 30 MG Oral Capsule [Vyvans e] Vyvanse 30 MG Vyvanse 30 MG 12/06/2020 12:00:00 AM EST 1.0 {capsule_in_the_morning} active Vyvanse 30 MG eCW1 ([facility]) lisdexamfetamine dimesylate 30 MG Oral Capsule [Vyvans e] Vyvanse 30 MG Vyvanse 30 MG 11/01/2020 12:00:00 AM EST 1.0 {capsule_in_the_morning} active Vyvanse 30 MG eCW1 ([facility]) lisdexamfetamine dimesylate 30 MG Oral Capsule [Vyvans e] Vyvanse 30 MG Vyvanse 30 MG 10/04/2020 12:00:00 AM EST 1.0 {capsule_in_the_morning} active Vyvanse 30 MG eCW1 ([facility]) lisdexamfetamine dimesylate 30 MG Oral Capsule [Vyvans e] Vyvanse 30 MG Vyvanse 30 MG 10/04/2020 12:00:00 AM EST 1.0 {capsule_in_the_morning} active Vyvanse 30 MG eCW1 ([facility]) lisdexamfetamine dimesylate 30 MG Oral Capsule [Vyvans e] Vyvanse 30 MG Vyvanse 30 MG 08/30/2020 12:00:00 AM EST 1.0 {capsule_in_the_morning} active Vyvanse 30 MG eCW1 ([facility]) lisdexamfetamine dimesylate 30 MG Oral Capsule [Vyvans e] Vyvanse 30 MG Vyvanse 30 MG 08/30/2020 12:00:00 AM EST 1.0 {capsule_in_the_morning} active Vyvanse 30 MG eCW1 ([facility]) lisdexamfetamine dimesylate 30 MG Oral Capsule [Vyvans e] Vyvanse 30 MG Vyvanse 30 MG 07/27/2020 12:00:00 AM EDT 1.0 {capsule_in_the_morning} active Vyvanse 30 MG eCW1 ([facility]) lisdexamfetamine dimesylate 30 MG Oral Capsule [Vyvans e] Vyvanse 30 MG Vyvanse 30 MG 07/27/2020 12:00:00 AM EDT 1.0 {capsule_in_the_morning} active Vyvanse 30 MG eCW1 ([facility]) lisdexamfetamine dimesylate 30 MG Oral Capsule [Vyvans e] Vyvanse 30 MG Vyvanse 30 MG 07/27/2020 12:00:00 AM EDT 1.0 {capsule_in_the_morning} active Vyvanse 30 MG eCW1 ([facility]) lisdexamfetamine dimesylate 30 MG Oral Capsule [Vyvans e] Vyvanse 30 MG Vyvanse 30 MG 07/27/2020 12:00:00 AM EDT 1.0 {capsule_in_the_morning} active Vyvanse 30 MG eCW1 ([facility]) lisdexamfetamine dimesylate 30 MG Oral Capsule [Vyvans e] Vyvanse 30 MG Vyvanse 30 MG 07/27/2020 12:00:00 AM EDT 1.0 {capsule_in_the_morning} active Vyvanse 30 MG eCW1 ([facility]) lisdexamfetamine dimesylate 30 MG Oral Capsule [Vyvans e] Vyvanse 30 MG Vyvanse 30 MG 07/27/2020 12:00:00 AM EDT 1.0 {capsule_in_the_morning} active Vyvanse 30 MG eCW1 ([facility]) lisdexamfetamine dimesylate 30 MG Oral Capsule [Vyvans e] Vyvanse 30 MG Vyvanse 30 MG 07/27/2020 12:00:00 AM EDT 1.0 {capsule_in_the_morning} active Vyvanse 30 MG eCW1 ([facility]) lisdexamfetamine dimesylate 30 MG Oral Capsule [Vyvans e] Vyvanse 30 MG Vyvanse 30 MG 07/27/2020 12:00:00 AM EDT 1.0 {capsule_in_the_morning} active Vyvanse 30 MG eCW1 ([facility]) lisdexamfetamine dimesylate 30 MG Oral Capsule [Vyvans e] Vyvanse 30 MG Vyvanse 30 MG 07/27/2020 12:00:00 AM EDT 1.0 {capsule_in_the_morning} active Vyvanse 30 MG eCW1 ([facility]) lisdexamfetamine dimesylate 30 MG Oral Capsule [Vyvans e] Vyvanse 30 MG Vyvanse 30 MG 07/27/2020 12:00:00 AM EDT 1.0 {capsule_in_the_morning} active Vyvanse 30 MG eCW1 ([facility]) lisdexamfetamine dimesylate 30 MG Oral Capsule [Vyvans e] Vyvanse 30 MG Vyvanse 30 MG 07/27/2020 12:00:00 AM EDT 1.0 {capsule_in_the_morning} active Vyvanse 30 MG eCW1 ([facility]) Insurance Providers Payer name Policy type / Coverage type Policy ID Covered alliance party ID Covered alliance party's relationship to valdes Policy Valdes Plan Information [facility] [employer] [id number] Family Dependent [id number] [facility] [employer] [id number] Family Dependent [id number] [facility] [employer] [id number] Family Dependent [id number] [facility] [employer] [id number] Family Dependent [id number] [facility] [employer] [id number] Family Dependent [id number] [facility] [employer] [id number] Family Dependent [id number] [facility] [employer] [id number] Family Dependent [id number] [facility] [employer] [id number] Family Dependent [id number] [facility] [id number] Family Dependent [id number] [facility] [employer] [id number] Family Dependent [id number] [facility] [employer] [id number] Family Dependent [id number] [facility] [employer] [id number] Family Dependent [id number] [facility] [employer] [id number] Family Dependent [id number] [facility] [employer] [id number] Family Dependent [id number] [facility] [employer] [id number] Family Dependent [id number] [facility] [employer] B [id number] Family Dependent [id number] [facility] [employer] B [id number] Family Dependent [id number] [facility] [employer] B [id number] Family Dependent [id number] [facility] [id number] [id number] [id number] Self [id number] [place] Plan/ [id number] Self [id number] [facility] [id number] [place] [id number] DEPT PROGRAM [id number] S [id number] [facility] [place] [id number] 18 [id number] ANSI[employer]Commercial [id number] Self [id number] ANSI[employer]Commercial [id number] Commercial [id number] Self [id number] AN[employer]mercial [id number] Commercial [id number] Self [id number] ANSI-Commercial [id number] Program Commercial [id number] Self [id number] Program Commercial [id number] Self [id number] Program Commercial [id number] Self [id number] Commercial [id number] Family Dependent O [id number] S [id number] [facility] [id number] FA2 [id number] [facility] [id number] S [id number] [facility] OFFICE OF COMMUNITY CARE [id number] Problems, Conditions, and Diagnoses Code Display Name Description Problem Type Effective Dates Data Source(s) F90.9 Attention-deficit hyperactivity disorder , unspecified type ATTENTION- DEFICIT HYPERACTIVITY DISORDER, UNSPECIF Diagnosis [facility], unspecified ANXIETY DISORDER, UNSPEC IFIED Diagnosis 01/19/2021 10:00:00 AM [facility] F32.9 Major depressive disorder, single episod e, unspecified MAJOR DEPRESSIVE DISORDER, SINGLE EPISODE, UNSPECI Diagnosis 01/19/2021 10:00:00 AM [facility] F42.9 OBSESSIVE-COMPULSIVE DISORDER, UNSPECIFI ED OBSESSIVE-COMPULSIVE DISORDER, UNSPECIFIED Diagnosis 01/19/2021 10:00:00 AM EDT [facility] 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 Problem 08/17/2021 1 2:00:00 AM EDT eCW1 ([facility]) I49.8 [id number] POTS (postural orthostatic tachycardia sy ndrome) Problem 08/17/2021 12:00:00 AM EDT eCW1 ([facility]) G47.10 [id number] Hypersomnia Problem 02/15/2021 12:00:00 AM E DT eCW1 ([facility]) F41.9 [id number] Anxiety Problem 02/15/2021 12:00:00 AM ED T eCW1 ([facility]) Surgeries/Procedures Procedure Description Date Indications Data Source(s) OFFICE OUTPATIENT VISIT 25 MINUTES 08/26/2021 12:00:00 AM EDT MEDENT ([facility]) CVR [employer].Svc. STI / H 07/18/2021 12:00:00 AM EDT - 07/18/2021 12:00:00 AM EDT Next[facility] ([facility]) CVR [employer].Svc. Other 07/18/2021 12:00:00 AM EDT - 2020 12:00:00 AM EDT [facility] ([facility]) CVR [employer].Svc. Contraceptive 07/18/2021 12 :00:00 AM EDT - 07/18/2021 12:00:00 AM EDT [facility] ([facility]) CVR Med.Svc. Height/Weight 07/18/2021 12 :00:00 AM EDT - 07/18/2021 12:00:00 AM EDT [facility] ([facility]) CVR Blood Pressure 07/18/2021 12:00:00 AM EDT - 2020 12:00:00 AM EDT [facility] ([facility]) CVR Med.Svc. Other 07/18/2021 12:00:00 AM EDT - 2020 12:00:00 AM EDT [facility] ([facility]) HCS Without Test 07/18/2021 12:00:00 AM EDT - 07/18/20 12:00:00 AM EDT [facility] ([facility]) PREV VISIT, EST, AGE 18-39 07/18/2021 12 :00:00 AM EDT - 07/18/2021 12:00:00 AM EDT [facility] ([facility]) URINE TEST 07/18/2021 12:00:00 AM EDT - 07/18/2021 12:00:00 AM EDT [facility] ([facility]) OFFICE OUTPATIENT VISIT 25 MINUTES 05/24/2021 12:00:00 AM EDT MEDENT ([facility]) CVR [employer]ic.Svc. Other 05/16/2021 12:00:00 AM EDT - 2020 12:00:00 AM EDT [facility]Gen ([facility]) CVR [employer].Svc. Contraceptive 05/16/2021 12 :00:00 AM EDT - 05/16/2021 12:00:00 AM EDT [facility] ([facility]) CVR Med.Svc. Method Initiation 12:00:00 AM EDT - 05/16/2021 12:00:00 AM EDT [facility] ([facility]) CVR Med.Svc. Height/Weight 05/16/2021 12 :00:00 AM EDT - 05/16/2021 12:00:00 AM EDT [facility] ([facility]) CVR Blood Pressure 05/16/2021 12:00:00 AM EDT - 2020 12:00:00 AM EDT [facility] ([facility]) HCS Without Test 05/16/2021 12:00:00 AM EDT - 05/16/20 21 12:00:00 AM EDT [facility] ([facility]) OFFICE VISIT, NEW 05/16/2021 12:00:00 AM EDT - 021 12:00:00 AM EDT [facility] ([facility]) URINE TEST 05/16/2021 12:00:00 AM EDT - 05/16/2021 12:00:00 AM EDT [facility]Gen ([facility]) OFFICE OUTPATIENT VISIT 25 MINUTES 02/17/2021 12:00:00 AM EDT MEDENT ([facility]) Results ID Date Data Source TSH 08/24/2021 12:00:00 AM EDT eCW1 ([facility]) Name Value Range Interpretation Code Description Data [place] rce(s) Supporting Document(s) 4.330 0.463-3.98 THYROID STIMULATING HORMO NE eCW1 ([facility]) ID Date Data Source MAGNESIUM LEVEL 08/24/2021 12:00:00 AM EDT eCW1 ([facility]) Name Value Range Interpretation Code Description Data [place] rce(s) Supporting Document(s) 2.1 1.4-2.0 MAGNESIUM LEVEL eCW1 ([facility]) ID Date Data Source IRON (FE) 08/24/2021 12:00:00 AM EDT eCW1 ([facility]) Name Value Range Interpretation Code Description Data [place] rce(s) Supporting Document(s) 34 50-170 IRON (FE) eCW1 ([facility]) ID Date Data Source CBC with Differential 08/24/2021 12:00:00 AM EDT eCW1 ([facility]) Name Value Range Interpretation Code Description Data [place] rce(s) Supporting Document(s) 14.5 12.0-15.5 HEMOGLOBIN eCW1 ([facility]) 6.0 4.0-10.0 WHITE BLOOD COUNT eCW1 ([facility]) 4.87 4.00-5.40 RED BLOOD COUNT eCW1 ([facility]) 29.8 27.0-33.0 MEAN CORPUSCULAR HEMOGLOB IN eCW1 ([facility]) 33.6 32.0-36.5 MEAN CORPUSCULAR HGB CONC eCW1 ([facility]) 43.2 36.0-47.0 HEMATOCRIT eCW1 ([facility]) 88.7 80.0-96.0 MEAN CORPUSCULAR VOLUME e CW1 ([facility]) 55.0 36.0-66.0 NEUTROPHILS % eCW1 ([facility]) 289 150-450 PLATELET COUNT, AUTOMATED eCW1 ([facility]) 11.7 11.5-14.5 RED CELL DISTRIBUTION WID TH eCW1 ([facility]) 0.7 0.0-1.0 BASO % eCW1 ([facility]) 37.1 24.0-44.0 LYMPH % eCW1 ([facility]) 6.8 2.0-8.0 MONO % eCW1 ([facility]) 0.2 0.0-3.0 EOS % eCW1 ([facility]) 2.2 1.5-5.0 LYMPH # eCW1 ([facility]) 0.0 0.0-0.5 EOS # eCW1 ([facility]) 3.3 1.5-8.5 NEUTROPHILS # eCW1 ([facility]) 0.4 0.0-0.8 MONO # eCW1 ([facility]) 0.0 0.0-0.2 BASO # eCW1 ([facility]) ID Date Data Source [id number] 07/18/2021 02:57:37 PM EDT NextGen ([facility]) Name Value Range Interpretation Code Description Data [place] rce(s) Supporting Document(s) NegativeLot: [id number]: 12/26/2022 High Sensitivity Urine Test NextGen ([facility]) ID Date Data Source [id number] 07/08/2021 12:45:00 PM [facility]T [facility] Name Value Range Interpretation Code Description Data [place] rce(s) Supporting Document(s) SARS-CoV-2 RNA Resp Ql MALACHI+probe NOT DETECTED [facility] This lab was ordered by NORA mccarthy and reported by NORA Joseph. ID Date Data Source [id number] 05/16/2021 11:59:05 AM EDT NextGen ([facility]) Name Value Range Interpretation Code Description Data [place] rce(s) Supporting Document(s) NegativeLot: [id number]: 10/28/2022 High Sensitivity Urine Test NextGen ([facility]) ID Date Data Source TOTAL IRON BINDING CAPACIT 02/17/2021 12:00:00 AM EDT eCW1 ( [facility]) Name Value Range Interpretation Code Description Data [place] rce(s) Supporting Document(s) 316 250-450 TOTAL IRON BINDING CAPACI TY eCW1 ([facility]) 78 50-170 IRON (FE) eCW1 ([facility]) 24.7 13.2-45.0 PERCENT SATURATION eCW1 ([facility]) ID Date Data Source FERRITIN 02/17/2021 12:00:00 AM EDT eCW1 ([facility]) Name Value Range Interpretation Code Description Data [place] rce(s) Supporting Document(s) 27 8-252 FERRITIN eCW1 ([facility]) Procedure Social History Code Duration Value Status Description Data Source(s ) Smoking 08/17/2021 12:00:00 AM EDT Never Smoker completed Never S moker eCW1 ([facility]) 07/18/2021 12:00:00 AM EDT Current non-smoker completed C urrent non-smoker NextGen ([facility]) Smoking 07/18/2021 12:00:00 AM EDT Never smoker completed Never s moker NextGen ([facility]) Smoking 02/15/2021 12:00:00 AM EDT Never Smoker completed Never S moker eCW1 ([facility]) Smoking 02/15/2021 12:00:00 AM EDT Never Smoker completed Never S moker eCW1 ([facility]) Smoking 02/15/2021 12:00:00 AM EDT Never Smoker completed Never S moker eCW1 ([facility]) Smoking 02/15/2021 12:00:00 AM EDT Never Smoker completed Never S moker eCW1 ([facility]) Smoking 02/15/2021 12:00:00 AM EDT Never Smoker completed Never S moker eCW1 ([facility]) Smoking 02/15/2021 12:00:00 AM EDT Never Smoker completed Never S moker eCW1 ([facility]) Smoking 08/24/2020 12:00:00 AM EDT Never Smoker completed Never S moker eCW1 ([facility]) Smoking 08/24/2020 12:00:00 AM EDT Never Smoker completed Never S moker eCW1 ([facility]) Smoking 08/24/2020 12:00:00 AM EDT Never Smoker completed Never S moker eCW1 ([facility]) Smoking 08/24/2020 12:00:00 AM EDT Never Smoker completed Never S moker eCW1 ([facility]) Smoking 08/24/2020 12:00:00 AM EDT Never Smoker completed Never S moker eCW1 ([facility]) Smoking 08/24/2020 12:00:00 AM EDT Never Smoker completed Never S moker eCW1 ([facility]) Smoking 08/24/2020 12:00:00 AM EDT Never Smoker completed Never S moker eCW1 ([facility]) Smoking 08/24/2020 12:00:00 AM EDT Never Smoker completed Never S moker eCW1 ([facility]) Smoking 08/24/2020 12:00:00 AM EDT Never Smoker completed Never S moker eCW1 ([facility]) Smoking 08/24/2020 12:00:00 AM EDT Never Smoker completed Never S moker eCW1 ([facility]) Vital Signs ID Date Data Source UNK Name Value Range Interpretation Code Description Data Source(s) Respiratory rate 16 /min 16 /min MEDENT ( [facility] Heart rate 76 /min 76 /min MEDENT ([facility] ) Diastolic blood pressure 80 mm[Hg] 80 mm[Hg] MEDENT ([facility] Systolic blood pressure 110 mm[Hg] 110 mm[Hg] M EDENT ([facility] ) Body weight 92.2 [lb_av] 92.2 [lb_av] eCW1 ([facility]) Body weight 41.82 kg 41.82 kg [facility] ([facility]) Body height 61 [in_i] 61 [in_i] W1 ([facility]) Body mass index (BMI) [Ratio] 17.42 kg/m2 17.42 kg/m2 [facility] ([facility]) Heart rate 104 /min 104 /min eCW1 ([facility]) Respiratory rate 16 /min 16 /min eCW1 ([facility]) Body temperature 98.8 [degF] 98.8 [degF] eCW1 ( [facility]) Systolic blood pressure 120 mm[Hg] 120 mm[Hg] e CW1 ([facility]) Diastolic blood pressure 84 mm[Hg] 84 mm[Hg] eCW1 ([facility]) Body height 154.94 cm 154.94 cm [facility]) Body weight 43.545 kg 43.545 kg [facility] ([facility]) Systolic blood pressure 120 mm[Hg] 120 mm[Hg] N extGen ([facility]) Diastolic blood pressure 78 mm[Hg] 78 mm[Hg] Next[facility] ([facility]) Body mass index (BMI) [Ratio] 18.14 kg/m2 Underweight 18.1 4 kg/m2 Next[facility] ([facility]) Body mass index (BMI) [Percentile] Per age and gender 7 % 7 % NextGen ([facility]) Systolic blood pressure 120 mm[Hg] 120 mm[Hg] M EDENT ([facility] ) Diastolic blood pressure 70 mm[Hg] 70 mm[Hg] MEDENT ([facility] Heart rate 68 /min 68 /min MEDENT ([facility] ) Respiratory rate 16 /min 16 /min MEDENT ( [facility] Body height 154.94 cm 154.94 cm [facility]) Diastolic blood pressure 60 mm[Hg] 60 mm[Hg] NextGen ([facility]) Systolic blood pressure 100 mm[Hg] 100 mm[Hg] N extGen ([facility]) Body mass index (BMI) [Ratio] 17.38 kg/m2 Underweight 17.3 8 kg/m2 Next[facility] ([facility]) Body mass index (BMI) [Percentile] Per age and gender 2 % 2 % Next[facility] ([facility]) Body weight 41.730 kg 41.730 kg [facility] ([facility]) Systolic blood pressure 100 mm[Hg] 100 mm[Hg] M EDENT ([facility] ) Diastolic blood pressure 70 mm[Hg] 70 mm[Hg] MEDENT ([facility] ) Heart rate 76 /min 76 /min MEDENT ([facility] ) Respiratory rate 16 /min 16 /min MEDENT ( [facility] ) Systolic blood pressure 118 mm[Hg] 118 mm[Hg] e CW1 ([facility]) Heart rate 108 /min 108 /min eCW1 ([facility]) Respiratory rate 16 /min 16 /min eCW1 ([facility]) Body temperature 98.4 [degF] 98.4 [degF] eCW1 ( [facility]) Body weight 92.4 [lb_av] 92.4 [lb_av] eCW1 ([facility]) Body height 61 [in_i] 61 [in_i] eCW1 ([facility]) Body mass index (BMI) [Ratio] 17.46 kg/m2 17.46 kg/m2 eCW1 ([facility]) Diastolic blood pressure 80 mm[Hg] 80 mm[Hg] eCW1 ([facility]) Body weight 96.4 [lb_av] 96.4 [lb_av] eCW1 ([facility]) Body height 61 [in_i] 61 [in_i] eCW1 ([facility]) Body mass index (BMI) [Ratio] 18.21 kg/m2 18.21 kg/m2 eCW1 ([facility]) Heart rate 115 /min 115 /min eCW1 ([facility]) Respiratory rate 17 /min 17 /min eCW1 ([facility]) Body temperature 98.1 [degF] 98.1 [degF] eCW1 ( [facility]) Systolic blood pressure 137 mm[Hg] 137 mm[Hg] e CW1 ([facility]) Diastolic blood pressure 82 mm[Hg] 82 mm[Hg] eCW1 ([facility]) Systolic blood pressure 122 mm[Hg] 122 mm[Hg] M EDENT ([facility]) Heart rate 88 /min 88 /min MEDENT ([facility]) Respiratory rate 16 /min 16 /min MEDENT ( [facility]) Diastolic blood pressure 70 mm[Hg] 70 mm[Hg] MEDENT ([facility]) Patient Treatment Plan of Care Planned Activity Planned Date Details Description Data Source (s) Aubra 0.1 mg-20 mcg tablet 07/18/2021 12:00:00 AM EDT [facility] ([facility]) lisdexamfetamine dimesylate 30 MG Oral Capsule [Vyvans e] 07/14/2021 12:00:00 AM EDT eCW1 ([facility]) lisdexamfetamine dimesylate 30 MG Oral Capsule [Vyvans e] 06/13/2021 12:00:00 AM EDT eCW1 ([facility]) Apri 0.15 mg-0.03 mg tablet 05/16/2021 12:00:00 AM EDT [facility]Gen ([facility]) lisdexamfetamine dimesylate 30 MG Oral Capsule [Vyvans e] 05/13/2021 12:00:00 AM EDT eCW1 ([facility]) lisdexamfetamine dimesylate 30 MG Oral Capsule [Vyvans e] 04/11/2021 12:00:00 AM EDT eCW1 ([facility]) lisdexamfetamine dimesylate 30 MG Oral Capsule [Vyvans e] 03/10/2021 12:00:00 AM EDT eCW1 ([facility]) lisdexamfetamine dimesylate 30 MG Oral Capsule [Vyvans e] 02/07/2021 12:00:00 AM EDT eCW1 ([facility]) lisdexamfetamine dimesylate 30 MG Oral Capsule [Vyvans e] 01/03/2021 12:00:00 AM EST eCW1 ([facility]) lisdexamfetamine dimesylate 30 MG Oral Capsule [Vyvans e] 01/03/2021 12:00:00 AM EST eCW1 ([facility]) lisdexamfetamine dimesylate 30 MG Oral Capsule [Vyvans e] 12/06/2020 12:00:00 AM EST eCW1 ([facility]) lisdexamfetamine dimesylate 30 MG Oral Capsule [Vyvans e] 12/06/2020 12:00:00 AM EST eCW1 ([facility]) lisdexamfetamine dimesylate 30 MG Oral Capsule [Vyvans e] 11/01/2020 12:00:00 AM EST eCW1 ([facility]) lisdexamfetamine dimesylate 30 MG Oral Capsule [Vyvans e] 10/04/2020 12:00:00 AM EST eCW1 ([facility]) lisdexamfetamine dimesylate 30 MG Oral Capsule [Vyvans e] 10/04/2020 12:00:00 AM EST eCW1 ([facility]) lisdexamfetamine dimesylate 30 MG Oral Capsule [Vyvans e] 08/30/2020 12:00:00 AM EST eCW1 ([facility]) lisdexamfetamine dimesylate 30 MG Oral Capsule [Vyvans e] 08/30/2020 12:00:00 AM EST eCW1 ([facility]) lisdexamfetamine dimesylate 30 MG Oral Capsule [Vyvans e] 07/27/2020 12:00:00 AM EDT eCW1 ([facility]) lisdexamfetamine dimesylate 30 MG Oral Capsule [Vyvans e] 07/27/2020 12:00:00 AM EDT eCW1 ([facility]) lisdexamfetamine dimesylate 30 MG Oral Capsule [Vyvans e] 07/27/2020 12:00:00 AM EDT eCW1 ([facility]) lisdexamfetamine dimesylate 30 MG Oral Capsule [Vyvans e] 07/27/2020 12:00:00 AM EDT eCW1 ([facility]) lisdexamfetamine dimesylate 30 MG Oral Capsule [Vyvans e] 07/27/2020 12:00:00 AM EDT eCW1 ([facility]) lisdexamfetamine dimesylate 30 MG Oral Capsule [Vyvans e] 07/27/2020 12:00:00 AM EDT eCW1 ([facility]) lisdexamfetamine dimesylate 30 MG Oral Capsule [Vyvans e] 07/27/2020 12:00:00 AM EDT eCW1 ([facility]) lisdexamfetamine dimesylate 30 MG Oral Capsule [Vyvans e] 07/27/2020 12:00:00 AM EDT eCW1 ([facility]) lisdexamfetamine dimesylate 30 MG Oral Capsule [Vyvans e] 07/27/2020 12:00:00 AM EDT eCW1 ([facility]) lisdexamfetamine dimesylate 30 MG Oral Capsule [Vyvans e] 07/27/2020 12:00:00 AM EDT eCW1 ([facility]) lisdexamfetamine dimesylate 30 MG Oral Capsule [Vyvans e] 07/27/2020 12:00:00 AM EDT eCW1 ([facility])
[2021-09-06 22:59] LABS: BASO % 0.7 % (0.0-1.0); EOS # 0.1 10^3/uL (0.0-0.5); HEMATOCRIT 40.8 % (36.0-47.0); HEMOGLOBIN 13.7 g/dl (12.0-15.5); MEAN CORPUSCULAR HGB CONC 33.6 g/dl (32.0-36.5); MEAN CORPUSCULAR VOLUME 89.3 fl (80.0-96.0); MONO # 0.4 10^3/uL (0.0-0.8); MONO % 8.9 % (2.0-8.0); NEUTROPHILS # 1.9 10^3/uL (1.5-8.5); NEUTROPHILS % 43.2 % (36.0-66.0); PLATELET COUNT, AUTOMATED 294 10^3/uL (150-450); RED BLOOD COUNT 4.57 10^6/uL (4.00-5.40); WHITE BLOOD COUNT 4.5 10^3/uL (4.0-10.0)
[2021-09-06 23:20] LABS: MONO REFLEX EBV COMP NEGATIVE (NEGATIVE)
[2021-09-06 23:28] LABS: ALT/SGPT 18 U/L (12-78); BILIRUBIN,DIRECT 0.2 MG/DL (0.0-0.2); BILIRUBIN,TOTAL 1.1 MG/DL (0.2-1.0); BLOOD UREA NITROGEN 14 MG/DL (7-18); CALCIUM LEVEL 9.4 MG/DL (8.5-10.1); CARBON DIOXIDE LEVEL 31 MEQ/L (21-32); CHLORIDE LEVEL 104 MEQ/L (98-107); CREATININE FOR GFR 0.68 MG/DL (0.55-1.30); FREE T4 1.11 NG/DL (0.78-1.33); GLUCOSE, FASTING 86 MG/DL (70-100); LIPASE 109 U/L (73-393); SODIUM LEVEL 139 MEQ/L (136-145); TOTAL PROTEIN 7.2 GM/DL (6.4-8.2)
[2021-09-06] MEDS ORDERED: ACETAMINOPHEN TAB 650MG DOSE (2X325MG) PO ONE (23:30)
[2021-09-06] MEDS ORDERED: NS 1,000 ML IV ONE (23:30)
[2021-09-06] MEDS ORDERED: ONDANSETRON 4MG/2ML VIAL IV ONE (23:30)
[2021-09-07 01:02] VITALS: BP 103/68
[2021-09-08 14:09] LABS: EBV VIRAL CAPSID AG IgM <36.0 U/mL (0.0-35.9); Lyme Disease IgG/IgM Antibodie <0.91 ISR (0.00-0.90); Lyme Disease IgM Ab Quantitati <0.80 index (0.00-0.79)
== END 2021-09-07 01:01 | disposition home or self-care (01) ==
LOC: M ED 15:48
DX: R51.9 Headache, unspecified (principal); R53.83 Other fatigue; M79.10 Myalgia, unspecified site
CPT/HCPCS: 80048; 80076; 83690; 84439; 84443; 84702; 85025; 86308; 86617; 86664; 86665; 87631; 96374; 99284; J2405

== ENCOUNTER → 2021-11-14 | Outpatient (REF) ==
[~2021-11-14] MED LIST: VYVA30CA4
== END ==
LOC: M LABSMTC 12:51
PROVIDERS: ATTEND Pediatrics
DX: Z20.822 Contact with and (suspected) exposure to COVID-19 (principal)

== ENCOUNTER → 2021-11-26 | Outpatient (REF) | LOC: M LABSMTC 12:58 | PROVIDERS: ATTEND Pediatrics | DX: Z20.822 Contact with and (suspected) exposure to COVID-19 (principal) ==

== ENCOUNTER 2022-08-11 03:43 | Emergency (ER) | payer OTHER ==
[~2022-08-11] VITALS: Ht 154.9 cm; Wt 42.7 kg
[2022-08-11 04:21] LABS: BASO # 0.1 10^3/uL (0.0-0.2); BASO % 0.5 % (0.0-1.0); EOS % 0.2 % (0.0-3.0); HEMATOCRIT 34.7 % (36.0-47.0); LYMPH # 2.7 10^3/uL (1.5-5.0); LYMPH % 28.7 % (24.0-44.0); MEAN CORPUSCULAR HEMOGLOBIN 27.1 pg (27.0-33.0); MEAN CORPUSCULAR HGB CONC 31.7 g/dl (32.0-36.5); MEAN CORPUSCULAR VOLUME 85.5 fl (80.0-96.0); MONO # 0.5 10^3/uL (0.0-0.8); MONO % 4.9 % (2.0-8.0); NEUTROPHILS # 6.2 10^3/uL (1.5-8.5); NEUTROPHILS % 65.5 % (36.0-66.0); PLATELET COUNT, AUTOMATED 307 10^3/uL (150-450); RED BLOOD COUNT 4.06 10^6/uL (4.00-5.40); WHITE BLOOD COUNT 9.5 10^3/uL (4.0-10.0)
[2022-08-11 04:33] LABS: INR 0.99; PROTHROMBIN TIME 13.3 SECONDS (12.5-14.5)
[2022-08-11 04:51] LABS: ALBUMIN 4.3 GM/DL (3.2-5.2); ALT/SGPT 14 U/L (12-78); AMYLASE 54 U/L (25-115); BILIRUBIN,DIRECT 0.2 MG/DL (0.0-0.2); BILIRUBIN,TOTAL 0.6 MG/DL (0.2-1.0); BLOOD UREA NITROGEN 18 MG/DL (7-18); CALCIUM LEVEL 9.1 MG/DL (8.5-10.1); CARBON DIOXIDE LEVEL 26 MEQ/L (21-32); CHLORIDE LEVEL 104 MEQ/L (98-107); CREATININE FOR GFR 0.78 MG/DL (0.55-1.30); GLUCOSE, FASTING 139 MG/DL (70-100); LIPASE 129 U/L (73-393); POTASSIUM SERUM 3.7 MEQ/L (3.5-5.1); SODIUM LEVEL 135 MEQ/L (136-145); TOTAL PROTEIN 7.2 GM/DL (6.4-8.2)
[2022-08-11 05:11] LABS: HCG, SERUM QUALITATIVE NEGATIVE (NEGATIVE)
[2022-08-11] MEDS ORDERED: NS 1,000 ML IV ONE (08:35)
[2022-08-11 10:30] VITALS: BP 96/54
== END 2022-08-11 10:46 | disposition home or self-care (01) ==
LOC: M ED 03:43
DX: R11.10 Vomiting, unspecified (principal); R00.2 Palpitations; E86.0 Dehydration; F90.9 Attention-deficit hyperactivity disorder, unspecified type; F17.200 Nicotine dependence, unspecified, uncomplicated; F12.10 Cannabis abuse, uncomplicated; Z79.818 Long term (current) use of other agents affecting estrogen receptors and estrogen levels

== ENCOUNTER → 2023-02-27 | Outpatient (CLI) | payer OTHER ==
[2023-02-27 16:07] LABS: BASO % 0.7 % (0.0-1.0); EOS % 0.5 % (0.0-3.0); HEMATOCRIT 36.5 % (36.0-47.0); LYMPH # 1.8 10^3/uL (1.5-5.0); LYMPH % 29.5 % (24.0-44.0); MEAN CORPUSCULAR HEMOGLOBIN 24.2 pg (27.0-33.0); MEAN CORPUSCULAR HGB CONC 30.1 g/dl (32.0-36.5); MEAN CORPUSCULAR VOLUME 80.4 fl (80.0-96.0); MONO # 0.4 10^3/uL (0.0-0.8); MONO % 7.1 % (2.0-8.0); NEUTROPHILS # 3.7 10^3/uL (1.5-8.5); PLATELET COUNT, AUTOMATED 343 10^3/uL (150-450); RED BLOOD COUNT 4.54 10^6/uL (4.00-5.40); WHITE BLOOD COUNT 5.9 10^3/uL (4.0-10.0)
[2023-02-27 16:33] LABS: FERRITIN 2.9 NG/ML (7.3-270.7); FREE T4 1.01 NG/DL (0.89-1.76); THYROID STIMULATING HORMONE 3.849 uIU/ML (0.55-4.78)
== END ==
LOC: M LAB 15:10
PROVIDERS: ATTEND Family Medicine
DX: D64.9 Anemia, unspecified (principal); E06.3 Autoimmune thyroiditis

== ENCOUNTER → 2023-09-06 | Outpatient (CLI) | payer OTHER ==
[2023-09-06 16:17] LABS: BASO % 0.6 % (0.0-1.0); EOS # 0.1 10^3/uL (0.0-0.5); EOS % 1.1 % (0.0-3.0); HEMATOCRIT 37.2 % (36.0-47.0); HEMOGLOBIN 11.5 g/dl (12.0-15.5); LYMPH # 2.3 10^3/uL (1.5-5.0); LYMPH % 36.9 % (24.0-44.0); MEAN CORPUSCULAR HEMOGLOBIN 25.3 pg (27.0-33.0); MEAN CORPUSCULAR HGB CONC 30.9 g/dl (32.0-36.5); MEAN CORPUSCULAR VOLUME 81.9 fl (80.0-96.0); MONO # 0.6 10^3/uL (0.0-0.8); MONO % 9.1 % (2.0-8.0); NEUTROPHILS # 3.3 10^3/uL (1.5-8.5); NEUTROPHILS % 52.1 % (36.0-66.0); PLATELET COUNT, AUTOMATED 317 10^3/uL (150-450); RED BLOOD COUNT 4.54 10^6/uL (4.00-5.40); WHITE BLOOD COUNT 6.4 10^3/uL (4.0-10.0)
[2023-09-06 16:48] LABS: ALBUMIN 4.2 G/DL (3.2-5.2); ALKALINE PHOSPHATASE 47 U/L (46-116); ALT/SGPT 14 U/L (7.0-40); AST/SGOT 11 U/L (<34); BILIRUBIN,TOTAL 0.6 MG/DL (0.3-1.2); BLOOD UREA NITROGEN 12 MG/DL (9-23); CALCIUM LEVEL 9.5 MG/DL (8.5-10.1); CARBON DIOXIDE LEVEL 29 MMOL/L (20-31); CHLORIDE LEVEL 105 MMOL/L (98-107); CREATININE FOR GFR 0.67 MG/DL (0.55-1.30); GLOMERULAR FILTRATION RATE > 60.0 (>60); GLUCOSE, FASTING 80 MG/DL (60-100); IRON (FE) 17 UG/DL (50-170); PERCENT SATURATION 4.4 % (13.2-45.0); SODIUM LEVEL 139 MMOL/L (136-145); TOTAL IRON BINDING CAPACITY 386 UG/DL (250-425); TOTAL PROTEIN 7.1 G/DL (5.7-8.2)
[2023-09-06 16:52] LABS: FERRITIN 4.4 NG/ML (7.3-270.7); THYROID STIMULATING HORMONE 4.738 uIU/ML (0.55-4.78)
[2023-09-06 16:53] LABS: FREE T4 0.94 NG/DL (0.89-1.76)
== END ==
LOC: M LAB 15:32
PROVIDERS: ATTEND Family Medicine
DX: D50.9 Iron deficiency anemia, unspecified (principal); E06.3 Autoimmune thyroiditis

== ENCOUNTER → 2023-11-28 | Outpatient (REF) | payer OTHER | LOC: M SFHCWAGY 17:47 | PROVIDERS: ATTEND Nurse Practitioner Family | DX: Z12.4 Encounter for screening for malignant neoplasm of cervix (principal) ==

== ENCOUNTER 2023-12-04 12:56 | Emergency (ER) | payer OTHER ==
[~2023-12-04] VITALS: Ht 154.9 cm; Wt 45.9 kg
[2023-12-04] MEDS ORDERED: SERT25TA21 (13:14)
[2023-12-04] MEDS ORDERED: CETI5SOL3 PO (13:14)
[2023-12-04] MEDS ORDERED: MIDOTAB PO (13:16)
[2023-12-04] MEDS ORDERED: CLIN150C17 (13:16)
[2023-12-04 15:54] LABS: BASO % 0.5 % (0.0-1.0); HEMOGLOBIN 12.5 g/dl (12.0-15.5); LYMPH # 1.4 10^3/uL (1.5-5.0); MEAN CORPUSCULAR HEMOGLOBIN 27.2 pg (27.0-33.0); MEAN CORPUSCULAR HGB CONC 32.1 g/dl (32.0-36.5); MEAN CORPUSCULAR VOLUME 84.8 fl (80.0-96.0); MONO # 0.3 10^3/uL (0.0-0.8); MONO % 4.4 % (2.0-8.0); NEUTROPHILS # 5.8 10^3/uL (1.5-8.5); NEUTROPHILS % 76.8 % (36.0-66.0); PLATELET COUNT, AUTOMATED 311 10^3/uL (150-450); WHITE BLOOD COUNT 7.6 10^3/uL (4.0-10.0)
[2023-12-04 16:18] LABS: BLOOD UREA NITROGEN 16 MG/DL (9-23); CALCIUM LEVEL 9.1 MG/DL (8.5-10.1); CARBON DIOXIDE LEVEL 28 MMOL/L (20-31); CHLORIDE LEVEL 102 MMOL/L (98-107); GLOMERULAR FILTRATION RATE > 60.0 (>60); GLUCOSE, FASTING 91 MG/DL (60-100); HCG, SERUM QUALITATIVE NEGATIVE (NEGATIVE); POTASSIUM SERUM 3.4 MMOL/L (3.5-5.1); SODIUM LEVEL 138 MMOL/L (136-145)
[2023-12-04 17:32] VITALS: BP 115/70; TEMP 99.2; O2SAT 98
== END 2023-12-04 17:33 | disposition home or self-care (01) ==
LOC: M ED 12:56
DX: T50.905A Adverse effect of unspecified drugs, medicaments and biological substances, initial encounter (principal); F90.9 Attention-deficit hyperactivity disorder, unspecified type; F42.9 Obsessive-compulsive disorder, unspecified; G90.A Postural orthostatic tachycardia syndrome [POTS]; F12.10 Cannabis abuse, uncomplicated; Z79.1 Long term (current) use of non-steroidal anti-inflammatories (NSAID); Z79.899 Other long term (current) drug therapy

== ENCOUNTER 2024-12-23 12:02 | Outpatient (RCR) | payer OTHER ==
[~2024-12-23 12:02] MED LIST changes: +CETI5SOL3 PO; +CLIN150C17; +MIDOTAB PO; +SERT25TA21
== END 2024-12-26 ==
LOC: M PT 12:02
PROVIDERS: ATTEND Nurse Practitioner Family
DX: N94.10 Unspecified dyspareunia (principal)

== ENCOUNTER → 2024-12-31 | Outpatient (CLI) | payer OTHER ==
[2024-12-31 15:36] LABS: BASO # 0.1 10^3/uL (0.0-0.2); BASO % 0.8 % (0.0-1.0); EOS # 0.1 10^3/uL (0.0-0.5); EOS % 1.4 % (0.0-3.0); HEMATOCRIT 33.9 % (36.0-47.0); HEMOGLOBIN 9.8 g/dl (12.0-15.5); LYMPH # 1.9 10^3/uL (1.5-5.0); LYMPH % 28.9 % (24.0-44.0); MEAN CORPUSCULAR HEMOGLOBIN 21.4 pg (27.0-33.0); MEAN CORPUSCULAR HGB CONC 28.9 g/dl (32.0-36.5); MEAN CORPUSCULAR VOLUME 74.2 fl (80.0-96.0); MONO # 0.5 10^3/uL (0.0-0.8); MONO % 8.2 % (2.0-8.0); NEUTROPHILS # 3.9 10^3/uL (1.5-8.5); NEUTROPHILS % 60.5 % (36.0-66.0); PLATELET COUNT, AUTOMATED 394 10^3/uL (150-450); RED BLOOD COUNT 4.57 10^6/uL (4.00-5.40); WHITE BLOOD COUNT 6.4 10^3/uL (4.0-10.0)
[2024-12-31 15:59] LABS: ALBUMIN 4.1 G/DL (3.2-5.2); ALKALINE PHOSPHATASE 47 U/L (35-104); ALT/SGPT 17 U/L (7.0-40); AST/SGOT 10 U/L (<34); BILIRUBIN,TOTAL 0.4 MG/DL (0.3-1.2); BLOOD UREA NITROGEN 17 MG/DL (9-23); CALCIUM LEVEL 9.5 MG/DL (8.5-10.1); CARBON DIOXIDE LEVEL 27 MMOL/L (20-31); CHLORIDE LEVEL 105 MMOL/L (98-107); GLOMERULAR FILTRATION RATE > 60.0 (>60); GLUCOSE, FASTING 80 MG/DL (60-100); IRON (FE) 11 UG/DL (50-170); PERCENT SATURATION 2.6 % (13.2-45.0); POTASSIUM SERUM 4.2 MMOL/L (3.5-5.1); SODIUM LEVEL 141 MMOL/L (136-145); TOTAL IRON BINDING CAPACITY 427 UG/DL (250-425); TOTAL PROTEIN 7.3 G/DL (5.7-8.2)
[2024-12-31 16:02] LABS: FERRITIN 2.4 NG/ML (7.3-270.7)
== END ==
LOC: M LAB 13:54
PROVIDERS: ATTEND Family Medicine
DX: Z00.00 Encounter for general adult medical examination without abnormal findings (principal)

== ENCOUNTER 2025-01-16 15:09 | Outpatient (RCR) | payer OTHER | END 2025-01-26 | LOC: M PT 15:09 | PROVIDERS: ATTEND Nurse Practitioner Family | DX: N94.10 Unspecified dyspareunia (principal); M99.05 Segmental and somatic dysfunction of pelvic region ==

== ENCOUNTER 2025-02-13 10:36 | Outpatient (RCR) | payer OTHER | END 2025-02-25 | LOC: M PT 10:36 | PROVIDERS: ATTEND Nurse Practitioner Family | DX: N94.10 Unspecified dyspareunia (principal); M99.05 Segmental and somatic dysfunction of pelvic region ==